=== PATIENT | female | born 1955 | race Caucasian/White ===

== ENCOUNTER → 2019-12-26 11:31 | Outpatient (CLI) | payer MEDICARE, OTHER, SELFPAY ==
[2019-12-27 18:30] LABS: COVID19 Sendout Not Detected (Not Detected)
== END ==
PROVIDERS: Visit Provider Physician Assistant
DX: Z11.59 Encounter for screening for other viral diseases (principal)
CPT/HCPCS: 87635

== ENCOUNTER → 2020-03-14 16:12 | Outpatient (CLI) | payer MEDICARE, SELFPAY ==
[2020-03-14 16:56] LABS: Appearance Urine UA CLEAR; Bilirubin Urine UA NEGATIVE (NEGATIVE); Color Urine UA YELLOW; Glucose Urine UA NEGATIVE (Negative); Ketones Urine UA TRACE (NEGATIVE); Leukocyte Esterase Urine UA 1+ (NEGATIVE); Nitrite Urine UA NEGATIVE (Negative); Occult Blood Urine UA 3+ (Negative); Protein Urine UA 1+ (Negative); Urobilinogen Urine UA 0.2 E.U./dL (0.2)
[2020-03-14 17:00] LABS: pH Urine UA 5.5 (4.5-8.0)
[2020-03-14 17:18] LABS: RBC Urine 30-100/HPF (0-5/HPF); Squamous Epithelial Cell Urine 1-5 /HPF (0-5/HPF); WBC Urine 30-100/HPF (0-5/HPF)
[2020-03-14 17:19] LABS: Bacteria Urine Many (>30); Culture Indicated Urine Specimen Cultured; Hyaline Casts Urine 1-5/LPF
[2020-03-14 17:22] LABS: Creatinine Urine Random 137.3 mg/dL
[2020-03-14 17:46] LABS: Hemoglobin A1C% w Est Avg Glu 5.4 % (4.0-6.0)
[2020-03-14 17:52] LABS: Microalbumi Creatinin Ratio Ur 144.9 ug/mg CR (<30); Microalbumin Urine Random 19.9 mg/dL (0-1.6)
[2020-03-14 17:53] LABS: Alanine Aminotransferase 20 IU/L (<35); Albumin 4.4 g/dL (3.5-5.0); Albumin Globulin Ratio 1.3 (1.0-2.8); Alkaline Phosphatase 80 U/L (38-126); Aspartate Aminotransferase 30 IU/L (14-36); BUN Creatinine Ratio 23.5 (6-22); Blood Urea Nitrogen 24 mg/dL (7-17); Calcium 9.2 mg/dL (8.4-10.2); Carbon Dioxide 30 mmol/L (22-32); Chloride 102 mmol/L (98-107); Estimated Glomerular Filt Rate 54.2 mL/min (>60); Globulin 3.5 g/dL (1.7-4.1); Glucose 94 mg/dL (80-110); HEMOLYSIS < 15 (0-50); Potassium 3.6 mmol/L (3.4-5.1); Sodium 137 mmol/L (137-145); Total Protein 7.9 g/dL (6.3-8.2)
[2020-03-14 18:08] LABS: Free T4, Direct Thyroxine 0.92 ng/dL (0.78-2.19)
[2020-03-14 18:22] LABS: Thyroid Stimulating Hormone 1.03 uIU/mL (0.47-4.68)
== END ==
PROVIDERS: PCP Family Medicine; Referring Provider Family Medicine; Visit Provider Family Medicine
DX: M81.0 Age-related osteoporosis without current pathological fracture (principal); Z79.890 Hormone replacement therapy; N28.9 Disorder of kidney and ureter, unspecified
CPT/HCPCS: 36415; 80053; 81001; 82043; 82570; 83036; 84439; 84443; 87077; 87086; 87186

== ENCOUNTER → 2020-04-01 12:24 | Outpatient (CLI) | payer MEDICARE, SELFPAY ==
[2020-04-01 12:48] LABS: Bacteria Urine None Seen
[2020-04-01 12:57] LABS: Appearance Urine UA CLOUDY; Bilirubin Urine UA NEGATIVE (NEGATIVE); Color Urine UA YELLOW; Glucose Urine UA NEGATIVE (Negative); Ketones Urine UA NEGATIVE (NEGATIVE); Leukocyte Esterase Urine UA 2+ (NEGATIVE); Nitrite Urine UA POSITIVE (Negative); Occult Blood Urine UA 3+ (Negative); Protein Urine UA NEGATIVE (Negative); Urobilinogen Urine UA 0.2 E.U./dL (0.2)
[2020-04-01 13:08] LABS: RBC Urine 5-10/HPF (0-5/HPF); WBC Urine 5-10/HPF (0-5/HPF)
[2020-04-01 13:09] LABS: Amorphous Sediment Urine 1+; Culture Indicated Urine Specimen Cultured
== END ==
PROVIDERS: PCP Family Medicine; Referring Provider Family Medicine; Visit Provider Family Medicine
DX: N39.0 Urinary tract infection, site not specified (principal)
CPT/HCPCS: 81001; 87077; 87086; 87186

== ENCOUNTER → 2020-04-18 10:29 | Outpatient (CLI) | payer MEDICARE, SELFPAY ==
[2020-04-18 11:54] LABS: Appearance Urine UA CLEAR; Bilirubin Urine UA NEGATIVE (NEGATIVE); Color Urine UA YELLOW; Glucose Urine UA NEGATIVE (Negative); Ketones Urine UA NEGATIVE (NEGATIVE); Leukocyte Esterase Urine UA TRACE (NEGATIVE); Nitrite Urine UA NEGATIVE (Negative); Occult Blood Urine UA 1+ (Negative); Protein Urine UA NEGATIVE (Negative); Urobilinogen Urine UA 0.2 E.U./dL (0.2)
[2020-04-18 11:55] LABS: pH Urine UA 5.5 (4.5-8.0)
[2020-04-18 12:19] LABS: Bacteria Urine Few (2-10); RBC Urine 1-5/HPF (0-5/HPF); Squamous Epithelial Cell Urine 0-1 /HPF (0-5/HPF); WBC Urine 5-10/HPF (0-5/HPF)
[2020-04-18 12:20] LABS: Culture Indicated Urine Specimen Cultured
== END ==
PROVIDERS: PCP Family Medicine; Referring Provider Family Medicine; Visit Provider Family Medicine
DX: N28.9 Disorder of kidney and ureter, unspecified (principal); N30.00 Acute cystitis without hematuria
CPT/HCPCS: 81001; 87086

== ENCOUNTER → 2020-07-01 12:25 | Outpatient (CLI) | payer MEDICARE, SELFPAY ==
[2020-07-01 14:54] LABS: Free T4, Direct Thyroxine 0.86 ng/dL (0.78-2.19)
[2020-07-01 15:07] LABS: Thyroid Stimulating Hormone 3.67 uIU/mL (0.47-4.68)
== END ==
PROVIDERS: PCP Family Medicine; Referring Provider Family Medicine; Visit Provider Family Medicine
DX: E03.9 Hypothyroidism, unspecified (principal)
CPT/HCPCS: 36415; 84439; 84443

== ENCOUNTER → 2020-09-10 13:58 | Outpatient (CLI) | payer MEDICARE, SELFPAY ==
[2020-09-10 14:09] LABS: Bacteria Urine None Seen
[2020-09-10 15:49] LABS: Appearance Urine UA CLEAR; Bilirubin Urine UA NEGATIVE (NEGATIVE); Color Urine UA YELLOW; Glucose Urine UA NEGATIVE (Negative); Ketones Urine UA NEGATIVE (NEGATIVE); Leukocyte Esterase Urine UA 2+ (NEGATIVE); Nitrite Urine UA NEGATIVE (Negative); Occult Blood Urine UA 1+ (Negative); Protein Urine UA NEGATIVE (Negative); Urobilinogen Urine UA 0.2 E.U./dL (0.2)
[2020-09-10 16:02] LABS: pH Urine UA 5.5 (4.5-8.0)
[2020-09-10 16:08] LABS: RBC Urine 1-5/HPF (0-5/HPF); WBC Urine 5-10/HPF (0-5/HPF)
[2020-09-10 16:09] LABS: Culture Indicated Urine Specimen Cultured; Squamous Epithelial Cell Urine 0-1 /HPF (0-5/HPF)
== END ==
PROVIDERS: PCP Family Medicine; Referring Provider Family Medicine; Visit Provider Family Medicine
DX: R30.0 Dysuria (principal)
CPT/HCPCS: 81001; 87077; 87086; 87186

== ENCOUNTER → 2020-10-02 11:51 | Outpatient (CLI) | payer MEDICARE, SELFPAY ==
[2020-10-03 11:56] LABS: SARS CoV19 IgG Negative (Negative)
== END ==
PROVIDERS: PCP Family Medicine; Referring Provider Family Medicine; Visit Provider Family Medicine
DX: Z20.822 Contact with and (suspected) exposure to COVID-19 (principal)
CPT/HCPCS: 36415; 86769

== ENCOUNTER → 2020-10-22 11:48 | Outpatient (CLI) | payer MEDICARE, SELFPAY ==
[2020-10-22 11:56] LABS: Bacteria Urine None Seen; RBC Urine None Seen (0-5/HPF)
[2020-10-22 13:10] LABS: Alanine Aminotransferase 26 IU/L (<35); Albumin 4.4 g/dL (3.5-5.0); Albumin Globulin Ratio 1.4 (1.0-2.8); Alkaline Phosphatase 68 U/L (38-126); Aspartate Aminotransferase 39 IU/L (14-36); Bilirubin Total 0.5 mg/dL (0.2-1.3); Blood Urea Nitrogen 20 mg/dL (7-17); Calcium 9.4 mg/dL (8.4-10.2); Carbon Dioxide 26 mmol/L (22-32); Chloride 106 mmol/L (98-107); Estimated Glomerular Filt Rate 52.4 mL/min (>60); Globulin 3.1 g/dL (1.7-4.1); Glucose 89 mg/dL (80-110); HEMOLYSIS < 15 (0-50); Potassium 4.2 mmol/L (3.4-5.1); Sodium 141 mmol/L (137-145); Total Protein 7.5 g/dL (6.3-8.2)
[2020-10-22 13:26] LABS: Free T4, Direct Thyroxine 0.82 ng/dL (0.78-2.19)
[2020-10-22 13:40] LABS: Thyroid Stimulating Hormone 4.41 uIU/mL (0.47-4.68)
[2020-10-22 15:32] LABS: Appearance Urine UA CLEAR; Bilirubin Urine UA NEGATIVE (NEGATIVE); Color Urine UA YELLOW; Glucose Urine UA NEGATIVE (Negative); Ketones Urine UA NEGATIVE (NEGATIVE); Leukocyte Esterase Urine UA 1+ (NEGATIVE); Nitrite Urine UA NEGATIVE (Negative); Occult Blood Urine UA 1+ (Negative); Protein Urine UA NEGATIVE (Negative); Urobilinogen Urine UA 0.2 E.U./dL (0.2)
[2020-10-22 15:37] LABS: pH Urine UA 5.5 (4.5-8.0)
[2020-10-22 15:48] LABS: Culture Indicated Urine Specimen Cultured; WBC Urine 5-10/HPF (0-5/HPF)
== END ==
PROVIDERS: PCP Family Medicine; Referring Provider Family Medicine; Visit Provider Family Medicine
DX: E03.9 Hypothyroidism, unspecified (principal); R39.9 Unspecified symptoms and signs involving the genitourinary system
CPT/HCPCS: 36415; 80053; 81001; 84439; 84443; 87077; 87086; 87186

== ENCOUNTER → 2020-12-04 11:03 | Outpatient (CLI) | payer MEDICARE, SELFPAY ==
[2020-12-04 11:59] LABS: COVID19 -Nasal RAPID Negative (Negative)
== END ==
PROVIDERS: PCP Family Medicine; Visit Provider Specialist
DX: Z20.822 Contact with and (suspected) exposure to COVID-19 (principal)
CPT/HCPCS: 87635; C9803

== ENCOUNTER 2020-12-05 09:45 | Day surgery (SDC) | payer MEDICARE, SELFPAY ==
[2020-12-05] VITALS (7 sets, daily range): BP systolic 118–142; BP diastolic 73–88; PULSE 81–94; RESP 11–18; TEMP 36.4–36.6; O2SAT 98–100; BMI 25.9
--- NOTE | 2020-12-05 | PATH_ITS ---
[facility] Accession Number: [id number] . 01 Material submitted: . PART A: colon - ASCENDING COLON POLYP PART B: colon - COLON POLYP AT 60 CM . 02 Diagnosis: A. Ascending Colon, Polyp, Biopsy: Tubular adenoma. . B. Colon, Polyp at 60 cm, Biopsy: Tubular adenoma. MRV 12/08/2020 1408 Local . 02 Electronically signed: . Dana Warren MD, Pathologist NPI- [id number] . 01 Gross description: . Part A: ASCENDING COLON POLYP: Received in formalin are multiple fragment(s) of irving, soft tissue measuring 1.3 x 0.5 x 0.2 cm in aggregate submitted entirely in 1 cassette(s) Part B: COLON POLYP AT 60 CM: Received in formalin are 4 fragment(s) of irving, soft tissue measuring 0.5 x 0.3 x 0.2 cm to 0.2 x 0.2 x 0.1 cm submitted entirely in 1 cassette(s) /CURTIS 12/06/2020 0522 Local . 02 Pathologist provided ICD-10: D12.2, D12.6 . 02 CPT . 547644, [id number] Performed at: 01 [facility] [address], [place], [place] [id number] MD Miguel Loyd MD Phone: [phone] Performed at: 02 [facility] [address] [place], [place] [id number] MD Dana Warren MD Phone: [phone]
[2020-12-05] MEDS: LACTATED RINGERS 1,000 ML 100 ML IV (10:27)
--- NOTE | 2020-12-05 12:02 | PM.HP.1 ---
History of Present Illness History of Present Illness Chief complaint: SCREENING COLONOSCOPY Narrative: Patient is a woman here for screening colonoscopy. She has had polyps removed in the past. She has also had a colon resection that she believes was were diverticulitis. Patient History Medical History Chicken pox Chronic back pain Colon polyps (~1971) Endometriosis (~1975) Fractures Hemorrhoid History of UTI Hormone replacement therapy Hypothyroid Infertility Interstitial cystitis (chronic) with hematuria Lower urinary tract symptoms (LUTS) Measles Osteoporosis Osteoporosis Renal insufficiency, mild Shoulder pain (~2018) UTI (urinary tract infection) Vertigo Surgical History Anesthesia Cataracts, bilateral (~2018) History of bladder surgery (~2015) History of hysterectomy (~2010) History of nasal surgery (~2010) Status post cervical polyp removal (~2010) Family & Social History Family History Father History of heart disease Mother MRSA (methicillin resistant Staphylococcus aureus) Brother History of heart disease Mental health problem Social History: household members spouse Tobacco & Substance use: Smoking Status Never smoker alcohol intake current alcohol intake frequency holiday/special occasion Substance Use Type does not use Meds Home Medications and Allergies Home Medications Medication Instructions Recorded Confirmed Type estradiol 0.5 mg tablet See Rx Instructions .ROUTE 07/01/20 12/05/20 Rx .COMPLEX #90 tab estradiol (Estrace) 1 g VAGINAL 2XW #42.5 g 10/03/20 12/05/20 Rx amoxicillin 500 mg capsule 500 mg PO TID 5 Days #15 cap 10/09/20 12/05/20 Rx Allergies Allergy/AdvReac Type Severity Reaction Status Date / Time Sulfa (Sulfonamide Allergy Severe Burning, Verified 12/05/20 10:06 Antibiotics) and other unknown reactions Nitrofuran Analogues Allergy Intermediate Hives Verified 12/05/20 10:06 ciprofloxacin [From Cipro ] Allergy Unknown rash Verified 12/05/20 10:06 hydrocortisone Allergy Unknown Verified 12/05/20 10:06 [From Cipro ] Review of Systems Review of Systems Narrative: Patient denies any heart problems chest pain black or bloody bowel movements seizures blackouts. No Lung problems. Exam Vital Signs (past 8 hours): - 12/05/20 10:08 Temperature 97.8 F Pulse Rate 94 H Respiratory Rate 18 Blood Pressure 142/82 H Pulse Oximetry 100 Oxygen Delivery Method Room Air Narrative Exam Narrative: Pleasant cooperative patient no apparent distress. Lungs are clear to auscultation. No rales or rhonchi. Heart regular rate and rhythm no murmur gallop. Abdomen is soft nontender without mass. No obvious hernias. Patient is alert and oriented x3. Assessment & Plan Assessment and plan (1) History of colon polyps: Status: Acute Assessment & Plan narrative: I have discussed the procedure and the rationale with the patient including risks of bleeding, perforation which would necessitate a major operation, failure to find remove all lesions and the potential to tattoo. They appeared to understand and wished to proceed.
--- NOTE | 2020-12-05 12:04 | PM.PREOP ---
Pre-operative Note COVID-19 COVID-19 status: Negative Result date/Date tested (Pos, Neg/Pending): 12/05/20 Interval Note History & Physical reviewed/Exam performed by Physician: Yes Changes to H&P: No ASA Class (for procedural sedation): I
[2020-12-05] MEDS: MIDAZOLAM 5 MG/5 ML VIAL IV (12:09)
[2020-12-05] MEDS: fentaNYL 250 MCG/5 ML INJ IV (12:10)
--- NOTE | 2020-12-05 12:50 | P.OP.ENDO_ITS ---
Operative Date/Time/Diagnoses Date of procedure: 12/05/20 Time of procedure: 12:50 Pre-op diagnosis: Screening for colon cancer. Last exam was 5 years ago. Patient has a history of polyps. Post-op diagnosis: same (Two small lesions that may be polypoid were biopsied.) Procedure & Clinicians Study performed: Colonoscopy with cold biopsy Same procedure as scheduled: Yes Indications: Screening Surgeon: Stephen Hicks Procedure Notes SCOAP/Timeout: Performed Procedure in detail: The patient was placed in the left lateral decubitus position and underwent IV sedation directed by the surgeon consisting of fentanyl and Versed. Digital exam was unremarkable except for some evidence of external hemorrhoids.. The scope was inserted and advanced through the rectum into the sigmoid, descending, transverse, and ascending colon. Extensive sigmoid diverticulosis was noted.. The cecum was reached identified by the ileocecal valve and the appendiceal opening. The scope was gradually brought out. Two tiny Polypoid lesions were found at the ascending colon and at 60 cm from the anal verge. There were biopsied and appeared to be completely removed.. I attempted to retroflex but was unable to do so in the rectum. T herefore slowly brought the scope through the anal verge. The appearance was remarkable for for some scarring.. The scope was removed and the patient tolerated the procedure well. There was a fair amount of liquid in the colon but I was able to suction it out and ultimately the exam was good. Scope withdrawal time: 7 minutes(12 total) Sedation minutes: 25 Findings: diverticulosis and polyp Specimen(s): other (Two polypoid lesions) Complications: none Post-procedure Recommendations: Colonscopy in 5 years Follow up: as needed Disposition: PACU
== END 2020-12-05 13:20 | disposition home or self-care (01) ==
PROVIDERS: PCP Family Medicine; Referring Provider Specialist; Visit Provider Specialist
PROC: 0DJD8ZZ Inspection of Lower Intestinal Tract, Via Natural or Artificial Opening Endoscopic (ICD-10-PCS; CPT 45378; principal; 2020-12-05 10:45)
DX: Z12.11 Encounter for screening for malignant neoplasm of colon (principal); Z86.010 Personal history of colon polyps; D12.2 Benign neoplasm of ascending colon; D12.6 Benign neoplasm of colon, unspecified; K57.30 Diverticulosis of large intestine without perforation or abscess without bleeding
CPT/HCPCS: 45380; 99152; J2250; J3010

== ENCOUNTER → 2021-02-17 11:56 | Outpatient (CLI) | payer MEDICARE, SELFPAY ==
--- NOTE | 2021-02-17 11:58 | DI.RAD.S_ITS ---
PROCEDURE: XR KNEE LT 3V INDICATIONS: pain TECHNIQUE: 3 views of the knee were acquired. COMPARISON: None. FINDINGS: Bones: No fractures or dislocations. No suspicious bony lesions. Mild degenerative changes of the left knee with suggestion of minimal medial compartment joint space narrowing. Soft tissues: Moderate-sized joint effusion. No suspicious soft tissue calcifications. IMPRESSION: Left knee without acute fracture or dislocation. Mild degenerative changes of the left knee. Moderate-sized suprapatellar joint effusion. If there is persistent clinical concern for internal soft tissue derangement, consider further evaluation with MRI. Dictated by: Petr Hernandez M.D. on 02/17/2021 at 13:39 Approved by: Petr Hernandez M.D. on 02/17/2021 at 13:40
== END ==
PROVIDERS: PCP Family Medicine; Referring Provider Nurse Practitioner Family; Visit Provider Nurse Practitioner Family
DX: M25.562 Pain in left knee (principal); M25.462 Effusion, left knee
CPT/HCPCS: 73562

== ENCOUNTER → 2021-03-19 15:14 | Outpatient (CLI) | payer MEDICARE, SELFPAY | PROVIDERS: PCP Family Medicine; Referring Provider Family Medicine; Visit Provider Family Medicine | DX: M81.0 Age-related osteoporosis without current pathological fracture (principal); Z78.0 Asymptomatic menopausal state; N28.9 Disorder of kidney and ureter, unspecified | CPT/HCPCS: 77080 ==

== ENCOUNTER → 2021-04-10 10:22 | Outpatient (CLI) | payer MEDICARE, SELFPAY ==
[2021-04-10 11:16] LABS: Add Manual Diff / Slide Review NO; Lymphocytes Absolute Auto 1800 /uL (1100-4500); Mean Corpuscular Hemoglobin 30.1 PG (26-34); Monocytes Absolute Auto 500 /uL (0-900); Neutrophils Absolute Auto 3600 /uL (1500-7000); Red Cell Distribution Width 12.9 % (11.6-14.8)
[2021-04-10 11:40] LABS: Alanine Aminotransferase 23 IU/L (<35); Albumin 4.3 g/dL (3.5-5.0); Albumin Globulin Ratio 1.4 (1.0-2.8); Alkaline Phosphatase 62 U/L (38-126); Aspartate Aminotransferase 32 IU/L (14-36); BUN Creatinine Ratio 16.5 (6-22); Bilirubin Total 0.6 mg/dL (0.2-1.3); Blood Urea Nitrogen 16 mg/dL (7-17); Calcium 9.5 mg/dL (8.4-10.2); Carbon Dioxide 29 mmol/L (22-32); Chloride 105 mmol/L (98-107); Cholesterol 293 mg/dL (140-199); Estimated Glomerular Filt Rate 57.3 mL/min (>60); Glucose 95 mg/dL (80-110); HDL Cholesterol 44 mg/dL (40-60); HEMOLYSIS < 15 (0-50); LDL Cholesterol Calculated 180 mg/dL (<100); Potassium 4.4 mmol/L (3.4-5.1); Sodium 137 mmol/L (137-145); Total Protein 7.3 g/dL (6.3-8.2); Triglycerides 347 mg/dL (35-150)
[2021-04-10 11:48] LABS: Free T4, Direct Thyroxine 0.79 ng/dL (0.78-2.19)
[2021-04-10 12:02] LABS: Thyroid Stimulating Hormone 5.62 uIU/mL (0.47-4.68)
[2021-04-10 13:16] LABS: Basophils Absolute Auto 0 /uL (0-100); Basophils Percent Auto 0.7 % (0-2); Eosinophils Absolute Auto 200 /uL (0-450); Eosinophils Percent Auto 2.7 % (2-4); Hematocrit 42.9 % (36-46); Hemoglobin 14.5 g/dL (12.0-16.0); Lymphocytes Percent Auto 29.3 % (25-40); Mean Corpuscular HGB Conc 33.9 % (30-36); Mean Corpuscular Volume 88.8 fL (80-100); Monocytes Percent Auto 8.3 % (3-14); Platelet Count 216 X10^3/uL (150-400); Red Blood Cell Count 4.84 X10^6/uL (4.0-5.2); White Blood Cell Count 6.1 X10^3/uL (4.5-11.0)
== END ==
PROVIDERS: PCP Family Medicine; Referring Provider Family Medicine; Visit Provider Family Medicine
DX: E03.9 Hypothyroidism, unspecified (principal); N28.9 Disorder of kidney and ureter, unspecified; M81.0 Age-related osteoporosis without current pathological fracture
CPT/HCPCS: 36415; 80053; 80061; 84439; 84443; 85025

== ENCOUNTER 2021-04-30 17:09 | Emergency (ER) | payer MEDICARE, SELFPAY ==
[2021-04-30 17:17] VITALS: BP 154/78; PULSE 80; RESP 22; TEMP 36.4; O2SAT 100
--- NOTE | 2021-04-30 18:01 | ED.URI ---
HPI - URI/Sore Throat General Chief Complaint: Upper Respiratory Symptoms Stated Complaint: eval for covid - states is + Time Seen by Provider: 04/30/21 17:11 Source: patient Mode of arrival: Ambulatory History of Present Illness HPI Narrative: 65-year-old female nonsmoker with history of hyperlipidemia and hypothyroid presents with significant other who both have mild upper respiratory symptoms for the past few days and just tested positive for COVID-19. She has had some nasal congestion, mild sore throat and a dry hacking cough. She has some body aches and subjective fever. She denies any chest pain or significant shortness of breath. She denies any nausea, vomiting or diarrhea. She has not been vaccinated against COVID-19. She is here requesting access to monoclonal antibodies Related Data Previous Rx's Medication Instructions Recorded estradiol 0.5 mg tablet See Rx Instructions .ROUTE 07/01/20 .COMPLEX #90 tab estradiol (Estrace) 1 g VAGINAL 2XW #42.5 g 10/03/20 pravastatin 20 mg tablet 20 mg PO BEDTIME #90 tab 04/21/21 levothyroxine 50 mcg tablet 50 mcg PO DAILY #90 tab 04/29/21 Allergies Allergy/AdvReac Type Severity Reaction Status Date / Time Sulfa (Sulfonamide Allergy Severe Burning, Verified 04/30/21 17:12 Antibiotics) and other unknown reactions Nitrofuran Analogues Allergy Intermediate Hives Verified 04/30/21 17:12 ciprofloxacin [From Cipro HC] Allergy Unknown rash Verified 04/30/21 17:12 hydrocortisone Allergy Unknown Verified 04/30/21 17:12 [From Cipro HC] naproxen AdvReac Mild nausea Verified 04/30/21 17:12 vomiting Review of Systems Review of Systems Narrative: GENERAL: See HPI. HEENT: See HPI RESPIRATORY: See Hpi CARDIOVASCULAR: Denies chest pain, palpitations, orthopnea, edema, GASTROINTESTINAL: Denies nausea, vomiting, abdominal pain, diarrhea, constipation, melena. : Denies dysuria, frequency, incontinence, hematuria, urinary retention. MUSCULOSKELETAL: denies weakness, joint pain, or bony pain SKIN: Denies rash, skin lesions, or other NEUROLOGIC: Denies weakness, headache, numbness, change in speech, confusion, seizures, incoordination. PSYCHIATRIC: No concerning psychosocial issues. 12 point review of systems is negative except for those stated above Patient History Medical History Chicken pox Chronic back pain Colon polyps (~1971) Endometriosis (~1975) Fractures Hemorrhoid History of UTI Hormone replacement therapy Hyperlipemia Hypothyroid Infertility Interstitial cystitis (chronic) with hematuria Left knee pain Lower urinary tract symptoms (LUTS) Measles Osteoporosis Osteoporosis Postmenopausal atrophic vaginitis Renal insufficiency, mild Shoulder pain (~2018) UTI (urinary tract infection) Vertigo Surgical History Anesthesia Cataracts, bilateral (~2018) History of bladder surgery (~2015) History of hysterectomy (~2010) History of nasal surgery (~2010) Status post cervical polyp removal (~2010) Family History Father History of heart disease Mother MRSA (methicillin resistant Staphylococcus aureus) Brother History of heart disease Mental health problem Social History household members: spouse Smoking Status: Never smoker alcohol intake: current substance use type: does not use Smoking Status: Never smoker alcohol intake frequency: holidays/special occasions only Substance Use Type: does not use Exam Narrative Exam Narrative: GENERAL: [65] year old patient appears stated age. Well-developed patient, in mild distress. HEAD: Atraumatic. Normocephalic. EYES: Pupils equal round and reactive. Extraocular motions intact. No scleral icterus. No injection or drainage. ENT: Nose without bleeding, purulent drainage. Throat without erythema, tonsillar hypertrophy or exudate. Airway patent. NECK: Trachea midline. Non tender CARDIOVASCULAR: Regular rate and rhythm without murmurs, gallops, or rubs. RESPIRATORY: Clear to auscultation. Breath sounds equal bilaterally. No wheezes, rales, or rhonchi. No increased work of breathing, tachypnea, hypoxemia or use of accessory muscles GASTROINTESTINAL: Abdomen soft, non-tender, nondistended. EXTREMITIES: No edema or joint tenderness. BACK: Nontender without deformity or crepitance. No flank tenderness. NEURO: AOx3. SKIN: No rash or erythema of visible areas Initial Vital Signs Initial Vital Signs: Vital Signs Temperature 97.5 F L 04/30/21 17:17 Pulse Rate 80 04/30/21 17:17 Respiratory Rate 22 04/30/21 17:17 Blood Pressure 154/78 H 04/30/21 17:17 Pulse Oximetry 100 04/30/21 17:17 Course Vital Signs Vital signs: Vital Signs - 8 hr 04/30/21 17:17 Temperature 97.5 F L Pulse Rate 80 Respiratory Rate 22 Blood Pressure 154/78 H Pulse Oximetry 100 MDM - URI/Sore Throat MDM Narrative Medical decision making narrative: Patient with minimal symptoms, no need for supplemental oxygen is COVID positive. No indication for significant workup, labs or imaging. She does meet criteria for monoclonal antibodies. An order has been sent to [facility] on her behalf. She does understand that this medication is not FDA approved. Return precautions given and questions answered to her apparent satisfaction Discharge Plan Departure Patient Disposition: Home Clinical Impression: COVID-19 Instructions: DI for COVID-19 (Suspected or Confirmed ) Activity Restrictions/Additional Instructions: *You have been diagnosed with [ COVID-19] *What to do: * per recommendations from the CDC and the [facility] Department of Health * stay home except to get medical care. Restrict activities outside your home, except for getting medical care. Do not go to work, school, or public areas. Avoid using public transportation, ride sharing, or taxis. * separate yourself from other people in your home. * call ahead before visiting your doctor * Wear a facemask * Cover your coughs and sneezes * Clean your hands often * Avoid sharing household items * Clean all high-touch services every day * Monitor your symptoms and seek prompt medical attention if your illness is worsening, particularly with difficulty in breathing. You may discontinue your isolation when: 1. You have been fever-free for at least 24 hours without the use of fever reducing medication, AND 2. Your symptoms are getting better 3. At least 5 days have passed since symptoms first appeared 4. If you have fever, continue to stay home until fever resolves Individuals with laboratory confirmed COVID-19 who have not had any symptoms may discontinue home isolation when at least 5 days have passed since the date of their first COVID-19 diagnostic test and have had no subsequent illness Your family and friends that are fully immunized with a booster need to wear a mask around others for 10 days and should get tested on day 5 if possible. At any point if they become symptomatic they should get a test and stay home. As we discussed, we will fax an order for monoclonal antibodies to [facility] and they will reach out to you to discuss how to proceed. Prescriptions: No Action levothyroxine 50 mcg tablet 50 mcg PO DAILY Qty: 90 3RF estradiol 0.5 mg tablet See Rx Instructions .ROUTE .COMPLEX Qty: 90 3RF Dose Instruction: TAKE 1 TABLET BY MOUTH DAILY Rx Instructions: TAKE 1 TABLET BY MOUTH DAILY pravastatin 20 mg tablet 20 mg PO BEDTIME Qty: 90 3RF estradiol [Estrace] 0.01 % (0.1 mg/gram) cream 1 g vaginal 2XW Qty: 42.5 3RF Rx Instructions: Insert 1 g intravaginally nightly times 12 days then 1 g intravaginally twice weekly at bedtime as directed. Referrals: Jim Krause DO [Primary Care Provider] -
--- NOTE | 2021-04-30 18:14 | PC.NURSE ---
dr. wallace sending form for possible monoclonal antibody infusion per pt request.
== END 2021-04-30 18:42 | disposition home or self-care (01) ==
PROVIDERS: Emergency Provider Emergency Medicine; PCP Family Medicine
DX: U07.1 COVID-19 (principal)
CPT/HCPCS: 99281

== ENCOUNTER → 2021-06-08 09:04 | Outpatient (CLI) | payer MEDICARE, SELFPAY ==
[2021-06-08 11:37] LABS: Appearance Urine UA CLOUDY; Bilirubin Urine UA NEGATIVE (NEGATIVE); Color Urine UA YELLOW; Glucose Urine UA NEGATIVE (Negative); Ketones Urine UA NEGATIVE (NEGATIVE); Leukocyte Esterase Urine UA 2+ (NEGATIVE); Nitrite Urine UA POSITIVE (Negative); Occult Blood Urine UA 2+ (Negative); Protein Urine UA NEGATIVE (Negative); Specific Gravity Urine UA 1.015 (1.000-1.035); Urobilinogen Urine UA 0.2 E.U./dL (0.2)
[2021-06-08 12:10] LABS: Bacteria Urine Many (>30); Culture Indicated Urine Specimen Cultured; RBC Urine 1-5/HPF (0-5/HPF); Squamous Epithelial Cell Urine 0-1 /HPF (0-5/HPF); WBC Urine 10-30/HPF (0-5/HPF)
[2021-06-08 13:03] LABS: Free T4, Direct Thyroxine 1.93 ng/dL (0.78-2.19)
[2021-06-08 13:17] LABS: Thyroid Stimulating Hormone < 0.015 uIU/mL (0.47-4.68)
== END ==
PROVIDERS: PCP Family Medicine; Referring Provider Family Medicine; Visit Provider Family Medicine
DX: E03.9 Hypothyroidism, unspecified (principal); E78.5 Hyperlipidemia, unspecified; N28.9 Disorder of kidney and ureter, unspecified; Z79.890 Hormone replacement therapy; R30.0 Dysuria
CPT/HCPCS: 36415; 81001; 84439; 84443; 87077; 87086; 87186

== ENCOUNTER → 2021-07-09 08:21 | Outpatient (CLI) | payer MEDICARE, SELFPAY ==
[2021-07-09 09:56] LABS: Appearance Urine UA CLOUDY; Bilirubin Urine UA NEGATIVE (NEGATIVE); Color Urine UA YELLOW; Glucose Urine UA NEGATIVE (Negative); Ketones Urine UA NEGATIVE (NEGATIVE); Leukocyte Esterase Urine UA 3+ (NEGATIVE); Nitrite Urine UA NEGATIVE (Negative); Occult Blood Urine UA 2+ (Negative); Protein Urine UA NEGATIVE (Negative); Urobilinogen Urine UA 0.2 E.U./dL (0.2)
[2021-07-09 10:02] LABS: pH Urine UA 5.5 (4.5-8.0)
[2021-07-09 10:12] LABS: RBC Urine 5-10/HPF (0-5/HPF)
[2021-07-09 10:13] LABS: Bacteria Urine Many (>30); Culture Indicated Urine Specimen Cultured; Squamous Epithelial Cell Urine 1-5 /HPF (0-5/HPF); WBC Urine >100/HPF (0-5/HPF)
== END ==
PROVIDERS: PCP Family Medicine; Referring Provider Family Medicine; Visit Provider Family Medicine
DX: R30.0 Dysuria (principal)
CPT/HCPCS: 81001; 87077; 87086; 87186

== ENCOUNTER → 2021-07-21 10:47 | Outpatient (CLI) | payer MEDICARE, SELFPAY ==
[2021-07-21 12:26] LABS: Appearance Urine UA CLOUDY; Bilirubin Urine UA NEGATIVE (NEGATIVE); Color Urine UA YELLOW; Glucose Urine UA NEGATIVE (Negative); Ketones Urine UA NEGATIVE (NEGATIVE); Leukocyte Esterase Urine UA 3+ (NEGATIVE); Nitrite Urine UA NEGATIVE (Negative); Occult Blood Urine UA 2+ (Negative); Protein Urine UA TRACE (Negative); Urobilinogen Urine UA 0.2 E.U./dL (0.2)
[2021-07-21 12:37] LABS: Amorphous Sediment Urine 1+; Bacteria Urine Moderate (10-30); Culture Indicated Urine Specimen Cultured; RBC Urine 1-5/HPF (0-5/HPF); Squamous Epithelial Cell Urine 1-5 /HPF (0-5/HPF); WBC Urine 30-100/HPF (0-5/HPF)
== END ==
PROVIDERS: Specialist; PCP Family Medicine; Referring Provider Family Medicine; Visit Provider Family Medicine
DX: R30.0 Dysuria (principal)
CPT/HCPCS: 81001; 87077; 87086; 87186

== ENCOUNTER → 2021-07-27 15:41 | Outpatient (CLI) | payer MEDICARE, SELFPAY ==
[2021-07-27 17:10] LABS: Bilirubin Urine UA NEGATIVE (NEGATIVE); Color Urine UA YELLOW; Glucose Urine UA NEGATIVE (Negative); Ketones Urine UA NEGATIVE (NEGATIVE); Leukocyte Esterase Urine UA 2+ (NEGATIVE); Nitrite Urine UA NEGATIVE (Negative); Occult Blood Urine UA 2+ (Negative); Protein Urine UA NEGATIVE (Negative); Urobilinogen Urine UA 0.2 E.U./dL (0.2)
[2021-07-27 17:23] LABS: Appearance Urine UA Slightly Cloudy; pH Urine UA 5.5 (4.5-8.0)
[2021-07-27 17:55] LABS: Bacteria Urine Many (>30); RBC Urine 10-30/HPF (0-5/HPF); Squamous Epithelial Cell Urine 0-1 /HPF (0-5/HPF); WBC Urine 10-30/HPF (0-5/HPF)
[2021-07-27 17:56] LABS: Culture Indicated Urine Specimen Cultured
== END ==
PROVIDERS: PCP Family Medicine; Referring Provider Family Medicine; Visit Provider Family Medicine
DX: Z87.440 Personal history of urinary (tract) infections (principal)
CPT/HCPCS: 81001; 87077; 87086; 87186

== ENCOUNTER → 2021-08-06 10:15 | Outpatient (CLI) | payer MEDICARE, SELFPAY ==
--- NOTE | 2021-08-06 10:16 | DI.CT.S_ITS ---
PROCEDURE: CT KIDNEY URETER BLADDER (KUB) INDICATIONS: recurrent UTI TECHNIQUE: Axial sections were acquired from the lung bases to the pubic symphysis. Coronal and sagittal reformats were performed. For radiation dose reduction, the following was used: automated exposure control, adjustment of mA and/or kV according to patient size. COMPARISON: None. FINDINGS: Image quality: Excellent. Lung bases: Lung bases are clear. Heart size is normal. Solid organs: Liver: The liver has no mass or intrahepatic biliary ductal dilatation. Biliary: The gallbladder has no gallstones, pericholecystic fluid, gallbladder wall thickening, or surrounding inflammatory change. Pancreas: The pancreas has no mass or ductal dilatation. There is no surrounding inflammation. Spleen: Normal size. There are no masses. Adrenals: No hypertrophy or nodules. Kidneys: No obstructive calculus or hydronephrosis. No solid mass. No cystic mass. Peritoneum and bowel: The distal esophagus and stomach are normal. The small bowel has a normal caliber and appearance. The terminal ileum is normal. The large bowel has diverticulosis without evidence of diverticulitis. Anastomotic cyril in the rectosigmoid junction. The appendix is normal. No free fluid or air. Nodes and vessels: No retroperitoneal or mesenteric adenopathy by size criteria. Aorta and inferior vena cava are normal in size. Miscellaneous: No abdominal wall mass or hernia. PELVIS: Genitourinary: History of cystectomy, likely neobladder. Status post and hysterectomy. Bones: No suspicious bony lesions. No vertebral body compression fractures. Degenerative disc disease at L5-S1. IMPRESSION: 1. The patient is status post cystectomy by history with a probable neobladder seen. There is no hydronephrosis. Kidneys have a normal appearance. 2. No acute abnormality. 3. Diverticulosis without evidence of diverticulitis. Dictated by: Lisandro Rincon M.D. on 08/06/2021 at 12:15 Approved by: Lisandro Rincon M.D. on 08/06/2021 at 12:34
[2021-08-06 10:41] LABS: Appearance Urine UA CLEAR; Bilirubin Urine UA NEGATIVE (NEGATIVE); Color Urine UA YELLOW; Glucose Urine UA NEGATIVE (Negative); Ketones Urine UA NEGATIVE (NEGATIVE); Leukocyte Esterase Urine UA TRACE (NEGATIVE); Nitrite Urine UA NEGATIVE (Negative); Occult Blood Urine UA TRACE-LYSED (Negative); Protein Urine UA NEGATIVE (Negative); Specific Gravity Urine UA 1.015 (1.000-1.035); Urobilinogen Urine UA 0.2 E.U./dL (0.2)
[2021-08-06 10:58] LABS: Bacteria Urine Few (2-10); Culture Indicated Urine Specimen Cultured; RBC Urine 1-5/HPF (0-5/HPF); Squamous Epithelial Cell Urine 1-5 /HPF (0-5/HPF); WBC Urine 5-10/HPF (0-5/HPF)
== END ==
PROVIDERS: PCP Family Medicine; Referring Provider Specialist; Visit Provider Specialist
DX: N30.00 Acute cystitis without hematuria (principal); K57.30 Diverticulosis of large intestine without perforation or abscess without bleeding
CPT/HCPCS: 74176; 81001; 87086

== ENCOUNTER → 2021-10-02 09:33 | Outpatient (CLI) | payer MEDICARE, SELFPAY ==
[2021-10-02 11:16] LABS: Iron 106 ug/dL (37-170)
[2021-10-02 12:23] LABS: Folate > 20.0 ng/mL (2.76-20.0)
[2021-10-03 16:15] LABS: SS A Ro Sjogrens Antibody < 0.2 AI (0.0-0.9); SS B La Sjogrens Antibody 0.3 AI (0.0-0.9)
== END ==
PROVIDERS: PCP Family Medicine; Referring Provider Dentist; Visit Provider Dentist
DX: K14.0 Glossitis (principal)
CPT/HCPCS: 36415; 82746; 83540; 86235

== ENCOUNTER 2023-07-17 15:27 | Emergency (ER) | payer MEDICARE, SELFPAY ==
[2023-07-17 15:48] VITALS: BP 117/70; PULSE 82; RESP 16; TEMP 36.6; O2SAT 100; BMI 28.3
--- NOTE | 2023-07-17 15:51 | DI.RAD.S_ITS ---
PROCEDURE: XR FOOT RT MIN 3V INDICATIONS: dropped cement board on foot TECHNIQUE: 3 views of the foot were acquired. COMPARISON: None. FINDINGS: Bones: No fractures or dislocations. No suspicious bony lesions. Soft tissues: No tibiotalar joint effusion. Achilles tendon appears normal. IMPRESSION: Soft tissue swelling without fracture or foreign body Approved by: Callum Armenta M.D. on 07/17/2023 at 15:36
[2023-07-17] MEDS: ACETAMINOPHEN 325 MG TABLET 650 MG PO (16:05)
[2023-07-17 16:14] VITALS: PULSE 82
--- NOTE | 2023-07-17 16:37 | ED.LOWEXIN ---
HPI - Extremity Injury (Lower) <Fiona Huff PA-C - Last Filed: 07/17/23 18:47> General Chief Complaint: Extremity Injury, Lower Stated Complaint: per pt Right Foot broken bone, swelling Time Seen by Provider: 07/17/23 15:57 Source: patient Mode of arrival: Wheelchair History of Present Illness HPI Narrative: Patient is a 67-year-old female presenting for evaluation of left swollen foot since she dropped a concrete board on it around 2:30 p.m. this afternoon. She reports that she was unable to walk right after the incident. She states that she does not have any numbness in her feet in his able to wiggle her toes. She reports increased pain in the medial side by her 1st distal metatarsal. She reports swelling over MTP area. She reports that she can not tolerate NSAIDs and does not want anything stronger for pain and Tylenol. Related Data Previous Rx's Medication Instructions Recorded estradiol 0.01% (0.1 mg/gram) 1 g vaginal 2XW #42.5 grams 10/03/20 vaginal cream (Estrace) pravastatin 20 mg tablet 20 mg PO BEDTIME #90 tabs 04/21/21 levothyroxine 50 mcg tablet 50 mcg PO DAILY #90 tabs 04/29/21 sulfamethoxazole 800 1 tab PO BEDTIME #60 tabs 08/04/21 mg-trimethoprim 160 mg tablet (Bactrim DS) estradiol 0.5 mg tablet See Rx Instructions .Route 10/18/21 .COMPLEX #90 tabs Allergies Allergy/AdvReac Type Severity Reaction Status Date / Time Nitrofuran Analogues Allergy Severe Swelling Verified 07/17/23 15:48 of Lip/Tongue/Throat Sulfa (Sulfonamide Allergy Severe Burning, Verified 07/17/23 15:48 Antibiotics) and other unknown reactions naproxen AdvReac Mild nausea Verified 07/17/23 15:48 vomiting ciprofloxacin [From Cipro HC] AdvReac Unknown rash Verified 07/17/23 15:48 hydrocortisone AdvReac Unknown Rash Verified 07/17/23 15:48 [From Cipro HC] Review of Systems <Foina Huff PA-C - Last Filed: 07/17/23 18:47> Review of Systems Narrative: See HPI Patient History <Fiona Huff PA-C - Last Filed: 07/17/23 18:47> Medical History Recurrent UTI Dysuria Hyperlipemia Left knee pain Postmenopausal atrophic vaginitis Lower urinary tract symptoms (LUTS) History of UTI Hypothyroid Interstitial cystitis (chronic) with hematuria UTI (urinary tract infection) Hormone replacement therapy Osteoporosis Renal insufficiency, mild Shoulder pain (~2018) Osteoporosis Fractures Chronic back pain Measles Chicken pox Vertigo Infertility Endometriosis (~1975) Hemorrhoid Colon polyps (~1971) Surgical History Anesthesia Status post cervical polyp removal (~2010) History of hysterectomy (~2010) History of nasal surgery (~2010) History of bladder surgery (~2015) Cataracts, bilateral (~2018) Family History Father History of heart disease Mother MRSA (methicillin resistant Staphylococcus aureus) Brother History of heart disease Mental health problem Social History household members: spouse Smoking Status: Never smoker alcohol intake: current substance use type: does not use Smoking Status: Never smoker alcohol intake frequency: holidays/special occasions only Substance Use Type: does not use Exam <Fiona Huff PA-C - Last Filed: 07/17/23 18:47> Initial Vital Signs Initial Vital Signs: Vital Signs Temperature 97.9 F 07/17/23 15:48 Pulse Rate 82 07/17/23 15:48 Respiratory Rate 16 07/17/23 15:48 Blood Pressure 117/70 07/17/23 15:48 Pulse Oximetry 100 07/17/23 15:48 Oxygen Delivery Method Room Air 07/17/23 15:48 GENERAL: 67 year old patient appears stated age. Well-developed patient, in no acute distress. HEAD: Atraumatic. Normocephalic. EYES: Pupils equal round No scleral icterus. No injection or drainage. NECK: Trachea midline, supple RESPIRATORY: Speaking comfortably normal tone of voice without any increased work of breathing. EXTREMITIES: Edema over MTPs of right foot, light bruising present over this area as well, patient demonstrates ability to wiggle toes with appropriate dorsiflexion and plantar flexion, she is quite tender to palpation on the distal 1st metatarsal and over all 5 MTPs, she has intact sensation throughout her foot and toes. She demonstrates inversion and eversion as well. Capillary refill less than 3 seconds. Dorsalis pedis 1+ secondary to swelling NEURO: AOx3. SKIN: No rash or erythema of visible areas <Ladan Montez DO - Last Filed: 07/18/23 19:55> Initial Vital Signs Initial Vital Signs: Vital Signs Temperature 97.9 F 07/17/23 15:48 Pulse Rate 82 07/17/23 15:48 Respiratory Rate 16 07/17/23 15:48 Blood Pressure 117/70 07/17/23 15:48 Pulse Oximetry 100 07/17/23 15:48 Oxygen Delivery Method Room Air 07/17/23 15:48 Course <Fiona Huff PA-C - Last Filed: 07/17/23 18:47> Orders Ordered: Discontinued Medications Acetaminophen (Acetaminophen 325 Mg Tablet) 650 mg PO NOW ONE Stop: 07/17/23 16:01 Last Admin: 07/17/23 16:05 Dose: 650 mg Documented By: PATTY Vital Signs Vital signs: Vital Signs - 8 hr 07/17/23 15:48 07/17/23 16:14 07/17/23 17:25 Temperature 97.9 F Pulse Rate 82 70 Pulse Rate [Right Dorsalis Pedis] 82 Respiratory Rate 16 14 Blood Pressure 117/70 120/78 Pulse Oximetry 100 99 Oxygen Delivery Method Room Air Room Air <Ladan Montez DO - Last Filed: 07/18/23 19:55> Orders Ordered: Discontinued Medications Acetaminophen (Acetaminophen 325 Mg Tablet) 650 mg PO NOW ONE Stop: 07/17/23 16:01 Last Admin: 07/17/23 16:05 Dose: 650 mg Documented By: PATTY Vital Signs Vital signs: Vital Signs - 8 hr 07/17/23 15:48 07/17/23 16:14 07/17/23 17:25 Temperature 97.9 F Pulse Rate 82 70 Pulse Rate [Right Dorsalis Pedis] 82 Respiratory Rate 16 14 Blood Pressure 117/70 120/78 Pulse Oximetry 100 99 Oxygen Delivery Method Room Air Room Air MDM - Extremity Injury (Lower) <Fiona Huff PA-C - Last Filed: 07/17/23 18:47> Imaging Data Foot x-ray: Radiologist's Impression: PROCEDURE: XR FOOT RT MIN 3V INDICATIONS: dropped cement board on foot TECHNIQUE: 3 views of the foot were acquired. COMPARISON: None. FINDINGS: Bones: No fractures or dislocations. No suspicious bony lesions. Soft tissues: No tibiotalar joint effusion. Achilles tendon appears normal. IMPRESSION: Soft tissue swelling without fracture or foreign body Approved by: Callum Armenta M.D. on 07/17/2023 at 15:36 MDM Narrative Medical decision making narrative: Patient is a 67-year-old female presenting for evaluation of right foot pain after a cement board fell on her right foot earlier this afternoon. Patient has significant pain and swelling over MTPs and on the distal 1st metatarsal. She demonstrates appropriate dorsiflexion and plantar flexion inversion and eversion and sensation. She also has good capillary refill time in color. X-rays showed soft tissue swelling without evidence of fracture or foreign body. Recommend that patient continue treatment with an Mitch wrap and weight-bearing as tolerated. Recommend she continue to apply ice, keep foot elevated and take Tylenol. Discussed with patient that she should make sure to follow up with primary care provider to ensure appropriate healing. Discussed ER return precautions in discharge instructions. Multiple etiologies for patient's symptoms considered including, but not limited to: Fracture right foot, sprain, hematoma. Imaging reviewed: X-ray right foot shows no evidence of fracture or foreign body. Patient was given 650 mg of Tylenol today. Patient's symptoms improved over duration of stay with above-stated therapies. Findings and discharge diagnosis discussed with patient/family followed by verbalization of understanding Return precautions discussed with patient/family whom verbalize understanding of diagnosis and plan Discharge Plan Departure Patient Disposition: Home Clinical Impression: Injury of foot, right Qualifiers: Encounter type: initial encounter Qualified Code(s): S99.921A - Unspecified injury of right foot, initial encounter Activity Restrictions/Additional Instructions: Thank you for coming in today for your care. You were diagnosed with a blunt injury to her right foot. Thankfully, x-ray did not show any evidence of fracture dislocation. In his quite possible that you will develop a hematoma which is a collection of blood under the area where you were struck by the cement board. Treatment for this involves compression with an Mitch wrap and weight-bearing as tolerated. You may continue to take Tylenol for your pain. I recommend follow up with your primary care provider to ensure no complications with your healing process. We have provided you with crutches today to take weight off of your right foot. I recommend that he elevate, use an Mitch wrap to apply compression and apply ice to help decrease the swelling. Please follow up in the emergency department if he should have new onset of severe numbness or pain or blue discoloration of your extremity or other concerning signs or symptoms. It was a pleasure meeting you today. Prescriptions: No Action levothyroxine 50 mcg tablet 50 mcg PO DAILY Qty: 90 3RF sulfamethoxazole-trimethoprim [Bactrim DS] 800-160 mg tablet 1 tab PO BEDTIME Qty: 60 0RF Rx Instructions: After you are done with initial bottle, take one tablet for 60 nights straight. estradiol 0.5 mg tablet See Rx Instructions .ROUTE .COMPLEX Qty: 90 0RF Dose Instruction: TAKE 1 TABLET BY MOUTH EVERY DAY Rx Instructions: TAKE 1 TABLET BY MOUTH EVERY DAY pravastatin 20 mg tablet 20 mg PO BEDTIME Qty: 90 3RF estradiol [Estrace] 0.01 % (0.1 mg/gram) cream 1 g vaginal 2XW Qty: 42.5 3RF Rx Instructions: Insert 1 g intravaginally nightly times 12 days then 1 g intravaginally twice weekly at bedtime as directed. Referrals: Jim Krause DO [Primary Care Provider] - Stand Alone Forms: Patient Portal/API ED Sign-out <Ladan Montez DO - Last Filed: 07/18/23 19:55> Cosign ED Attending Ricky Attestation: I was immediately available in the department for consultation.
[2023-07-17 17:25] VITALS: BP 120/78; PULSE 70; RESP 14; O2SAT 99
== END 2023-07-17 17:30 | disposition home or self-care (01) ==
PROVIDERS: Emergency Provider Physician Assistant; PCP Family Medicine
DX: S99.921A Unspecified injury of right foot, initial encounter (principal); W22.8XXA Striking against or struck by other objects, initial encounter; Z79.899 Other long term (current) drug therapy
CPT/HCPCS: 73630; 99283; 99284

== ENCOUNTER → 2024-12-21 10:26 | Outpatient (CLI) | payer MEDICARE, SELFPAY ==
[2024-12-21 11:10] LABS: Add Manual Diff / Slide Review NO; Hematocrit 42.2 % (36-46); Hemoglobin 14.7 g/dL (12.0-16.0); Lymphocytes Absolute Auto 1600 /uL (1100-4500); Mean Corpuscular HGB Conc 34.9 % (30-36); Mean Corpuscular Hemoglobin 31.1 PG (26-34); Mean Corpuscular Volume 89.1 fL (80-100); Platelet Count 180 X10^3/uL (150-400)
[2024-12-21 12:16] LABS: Alanine Aminotransferase 22 IU/L (<35); Albumin 4.2 g/dL (3.5-5.0); Albumin Globulin Ratio 1.7 (1.0-2.8); Alkaline Phosphatase 62 U/L (38-126); Blood Urea Nitrogen 16 mg/dL (7-17); Calcium 9.3 mg/dL (8.4-10.2); Carbon Dioxide 28 mmol/L (22-32); Chloride 105 mmol/L (98-107); Cholesterol 237 mg/dL (140-199); Estimated Glomerular Filt Rate 56 mL/min (>60); Globulin 2.5 g/dL (1.7-4.1); Glucose 77 mg/dL (70-99); HDL Cholesterol 46 mg/dL (40-60); HEMOLYSIS < 15 (0-50); Potassium 4.3 mmol/L (3.4-5.1); Sodium 140 mmol/L (137-145); Total Protein 6.7 g/dL (6.3-8.2); Triglycerides 310 mg/dL (35-150)
[2024-12-21 13:02] LABS: Thyroid Stimulating Hormone 2.73 uIU/mL (0.47-4.68)
== END ==
PROVIDERS: PCP Family Medicine; Referring Provider Family Medicine; Visit Provider Family Medicine
DX: N28.9 Disorder of kidney and ureter, unspecified (principal); E03.9 Hypothyroidism, unspecified; E78.2 Mixed hyperlipidemia; Z76.89 Persons encountering health services in other specified circumstances; Z13.220 Encounter for screening for lipoid disorders
CPT/HCPCS: 36415; 80053; 80061; 84443; 85025

== ENCOUNTER 2025-01-21 08:35 | Day surgery (SDC) | payer MEDICARE, SELFPAY ==
--- NOTE | 2025-01-21 09:45 | P.HP_ITS ---
History of Present Illness
--- NOTE | 2025-01-21 09:45 | PM.HP.IH.1 ---
History of Present Illness History of Present Illness Date Patient Seen: 01/21/25 Chief complaint: Screening Colonoscopy [facility] Medical History (Updated 12/14/24 @ 12:11 by Alysia Acuna DO) Recurrent UTI Hyperlipemia Left knee pain Postmenopausal atrophic vaginitis Lower urinary tract symptoms (LUTS) Hypothyroid Interstitial cystitis (chronic) with hematuria Hormone replacement therapy Osteoporosis Renal insufficiency, mild Shoulder pain (~2018) Fractures Chronic back pain Measles Chicken pox Vertigo Infertility Endometriosis (~1975) Hemorrhoid Colon polyps (~1971) Surgical History Anesthesia Status post cervical polyp removal (~2010) History of hysterectomy (~2010) History of nasal surgery (~2010) History of bladder surgery (~2015) Cataracts, bilateral (~2018) Family History Father History of heart disease Mother MRSA (methicillin resistant Staphylococcus aureus) Brother History of heart disease Mental health problem Social History household members: spouse alcohol intake: current substance use type: does not use Meds Home Medications and Allergies Home Medications ?Medication ?Instructions ?Recorded ?Confirmed ?Type estradiol 0.5 mg tablet See Rx Instructions .Route 10/18/21 01/04/25 Rx .COMPLEX #90 tabs sodium,potassium,mag sulfates 17.5 See Rx Instructions PO .COMPLEX 12/20/24 01/04/25 Rx gram-3.13 gram-1.6 gram oral soln #354 mL (Suprep Bowel Prep Kit) levothyroxine 75 mcg tablet 37.5 mcg (1/2 x 75 mcg) PO 01/04/25 01/04/25 Rx .COMPLEX #57 tabs diazepam 10 mg tablet 10 mg PO BEDTIME PRN bladder spasm 01/17/25 Rx #30 tabs Allergies Allergy/AdvReac Type Severity Reaction Status Date / Time Nitrofuran Analogues Allergy Severe Swelling Verified 01/04/25 08:42 of Lip/Tongue/Throat Sulfa (Sulfonamide Allergy Severe Burning, Verified 01/04/25 08:42 Antibiotics) and other unknown reactions naproxen AdvReac Mild nausea Verified 01/04/25 08:42 vomiting ciprofloxacin (From Cipro HC) AdvReac Unknown rash Verified 01/04/25 08:42 hydrocortisone (From Cipro AdvReac Unknown Rash Verified 01/04/25 08:42 HC) Assessment & Plan Time-Based Coding :: [TOTAL MINUTES] spent with patient and on the chart (including review of chart, obtaining history, exam, reviewing outside data, placing orders, documenting exam and treatment plan, and counseling patient) on [DATE]. [facility] Document charge(s): No
[2025-01-21] MEDS: LACTATED RINGERS 1,000 ML 42 ML IV (09:47)
--- NOTE | 2025-01-21 09:47 | P.OP.COLON_ITS ---
Operative Date/Time/Diagnoses
--- NOTE | 2025-01-21 09:47 | PM.OP.COLON ---
Operative Date/Time/Diagnoses Date of procedure: 01/21/25 Time of procedure: 10:33 Pre-op diagnosis: See indication and findings Post-op diagnosis: same Procedure & Clinicians Same procedure(s) as scheduled: Yes Surgeon: Jluis Fox Anesthesia Type: Other Procedure Notes Procedure in detail: After informed consent was obtained the patient was placed in left lateral decubitus position. The video colonoscope was introduced the rectum slowly advanced cecum. Preparation was only fair. On slow withdrawal mucosa was carefully examined and the scope was irrigated as much as possible. The scope was removed. The patient tolerated procedure well. Blood loss none Complications none Sedation mac Findings 1. 3 mm polyp at IC valve Jumbo biopsy removed completely 2. Otherwise negative colonoscopy to cecum Given her history patient should have follow-up colonoscopy in 5 years. This next time however might suggest that she have an additional dose of prep so that she has a seed cleaner preparation.
[2025-01-21 09:53] VITALS: BP 121/69; PULSE 80; RESP 16; TEMP 36.3; O2SAT 98
[2025-01-21 09:57] LABS: Add Manual Diff / Slide Review NO; Hematocrit 41.4 % (36-46); Hemoglobin 14.4 g/dL (12.0-16.0); Lymphocytes Absolute Auto 1600 /uL (1100-4500); Mean Corpuscular HGB Conc 34.7 % (30-36); Mean Corpuscular Hemoglobin 30.5 PG (26-34); Mean Corpuscular Volume 87.8 fL (80-100); Platelet Count 173 X10^3/uL (150-400)
[2025-01-21 10:31] VITALS: BP 106/55; PULSE 69; RESP 15; TEMP 36.8; O2SAT 97
[2025-01-21 10:40] VITALS: BP 114/58; PULSE 75; RESP 18; O2SAT 98
[2025-01-21 10:45] VITALS: BP 114/59; PULSE 73; RESP 17; O2SAT 98
== END 2025-01-21 10:53 | disposition home or self-care (01) ==
PROVIDERS: PCP Family Medicine; Referring Provider Internal Medicine Gastroenterology; Visit Provider Internal Medicine Gastroenterology
PROC: 0DJD8ZZ Inspection of Lower Intestinal Tract, Via Natural or Artificial Opening Endoscopic (ICD-10-PCS; CPT 45378; principal; 2025-01-21 10:30)
DX: Z12.11 Encounter for screening for malignant neoplasm of colon (principal); D12.0 Benign neoplasm of cecum
CPT/HCPCS: 45380; 85025; J2704; J7120